=== PATIENT | female | born 1955 | race Caucasian/White ===

== ENCOUNTER 2024-02-15 08:30 | Outpatient (RCR) | payer MEDICARE, OTHER, SELFPAY ==
--- NOTE | 2024-01-23 11:28 | HP.OTEVAL ---
Patient's Visit Information Visit Information Visit Information: MACRIN STEPHEN is a 69 year old F, referred to Occupational Therapy by Dr. Javier Hitchcock DO, with a diagnosis of L hand pain R wrist pain. Date of Evaluation: 01/23/24 Occupational Therapist: Martha Bailey Subjective Subjective: This 69 year old female arrives to OT with refferal due to L hand and R wrist pain. Per pt Dr states L side is due to dequervein. Pt has hx of ORIF january 2000 then 2000 to remove plate and bone rebroke sx for additional plate. pt presents this date with pain R ulnar side of wrist per otho possibly from over use compensating for L hand with dequervein. pt went through x2 rounds of prednisone then did injection to both sides. pt states it took edge off however still feels the pain. Pt does have brace she has been wearing since end of november L side modified thumb spica and R side wrist cockup orthosis she states she wears them at night and during day during heavy labor tasks. pt is retired. Pt is R hand dominant. Pt enjoys hiking. pt reports most intense pain on R side is when she supinates. Pain LUE: Current Pain Intensity: 6 RUE: Current Pain Intensity: 6 Objective Objective/Observation: arrives with with brace L wrist modified thumb space and R wrist wrist cock up orthosis ROM Shoulder: wfl Elbow: wfl Forearm: L wfl R wfl Wrist: L wfl R wfl CMC: wfl MP: wfl IP: wfl Radial Abduction: wfl Palmar Abduction: wfl Opposition: wfl MP: wfl PIP: wfl DIP: wfl ROM Comments: R side tightness with supination L wrist flexion painful to approx 3 Strength Girls Tennis Coach: R 50# L 30# Lateral Pinch: R 8# L 5# Tripod Pinch: R 5# L 0# Edema Other: L 16 cm R 15.5 cm Sensation Sensation Comments: L on radial side up thumb as well as ulnar side R only ulnar side Quick DASH-Disab of Arm,Shoulder& Hand Quick DASH Score: 36.3625 Goals Goal:: pt will improve L supervisor soakers strength equal to non affected UE (50#) in order to maximize daily functional use of LUE pt will improve L lateral pinch strength equal to non affected UE (8#) in order to maximize daily functional use of LUE Goal:: pt will report decrease pain in L wrist/ hand 1/10 during movement or less in order to promote daily functional use pt will report decrease pain in R wrist to 1/10 or less during movement in order to promote daily functional use Goal:: pt will verbalize/ demonstrate proper joint protection/ positioning and activity modification nec for L and R UE in order to promote functional use of BUEs Goal:: pt will improve quick dash score by 10 points or more (36.36) in order to maximize functional use of BUEs Goal:: pt will demonstrate/ verbalize 100% accuracy in L and R bracing wear sched as well as fit and don/dof tech to promote carryover and decreased pain pt will verbalize/ demonstrate 100% accuracy in L and R HEP program for decreased pain improved strength Rehabilitation General Assessment: This 69 year old female arrives with L thumb spica and R wrist cock up orthosis on. pt has been wearing these for last 7-8 weeks with minimal results. Pt presents with pain in L radial region during wrist flex and ulnar deviation consistent with dequerveins and R wrist at ulnar region along ECU tendon location. Pt does have full ROM however erports pain with certain movements. pt does have decreased supervisor soakers and pinch strength on L side due to pain . pt would benefit from OT services 1-2x a week for 4-6 weeks in order to provide training in joint positioning and protection provide pain management and modalities, impliment proper stretch and strengthening program for pain relief and return to function Rehabilitation Potential: Good Anticipated Interventions Anticipated Interventions: A/AAROM/PROM, Strengthening, Triggerpoint Release, Modalities, Joint Protection/Energy Conservation, Education re assistive Equipment, Education re Diagnosis, Education re Self Massage Techniques and Home Program Visit Plan Frequency: 1-2x /Week Duration: 4-6 Weeks General Plan: AAROM/AROM/PROM bracing stretch isometric strengthening tendon glide proprioception trigger point release TEXT: Thank you for the opportunity to evaluate your patient. For Medicare and Medicare HMO plans, please review the plan of care and approve it. It will need to be FAXED BACK to us at [phone] for Medicare purposes. Please let me know if there are questions or concerns regarding this plan of care. Physician Signature: Date:
--- NOTE | 2024-02-15 09:20 | HP.OTDCSUM ---
Discharge Summary D/C Summary: It has been my pleasure to treat MARCIN STEPHEN under orders from Dr. Javier Hitchcock DO, for the diagnosis of L hand pain R wrist pain for a total of 7 visit(s). Please see the following information for a summary of their discharge status. Overall Improvement % Improvement: 40 Goals Patient Goals: Regain Strength, Decrease Pain, Decrease Swelling/Stiffness, Use Hand/Wrist/Arm Normally Again, Decrease Tingling/Numbness, Resume Former Household Responsibilities (Cooking,Cleaning,Yard, etc.) and Resume Hobbies Goal:: pt will improve L quality control tech raw materials strength equal to non affected UE (50#) in order to maximize daily functional use of LUE 02/15/24 L 25# R 42# NOT MET pt will improve L lateral pinch strength equal to non affected UE (8#) in order to maximize daily functional use of LUE L 5# R 8# NOT MET Goal:: pt will report decrease pain in L wrist/ hand 1/10 during movement or less in order to promote daily functional use 3-4/10 NOT MET pt will report decrease pain in R wrist to 1/10 or less during movement in order to promote daily functional use 3-4/10 NOT MET Goal:: pt will verbalize/ demonstrate proper joint protection/ positioning and activity modification nec for L and R UE in order to promote functional use of BUEs GOAL MET Goal:: pt will improve quick dash score by 10 points or more (36.36) in order to maximize functional use of BUEs now 40.90 NOT MET Goal:: pt will demonstrate/ verbalize 100% accuracy in L and R bracing wear sched as well as fit and don/dof tech to promote carryover and decreased pain GOAL MET pt will verbalize/ demonstrate 100% accuracy in L and R HEP program for decreased pain improved strength GOAL MET Plan Plan: discharge D/C Information d/c sentence: If there are questions or concerns regarding this patient's occupational therapy, please fell free to call me at [phone]. Thank you for the referral of this patient. Sincerely, Martha Bailey
--- NOTE | 2024-02-15 09:21 | HP.OT.NRP ---
Patient Information Patient Information: MARCIN STEPHEN was seen in my office for initial evaluation on 01/23/24. The following Plan of Care was established for this patient: POC Established Initial Frequency: 1-2x /Week Initial Duration: 4-6 Weeks Plan: discharge Anticipated Interventions Anticipated Interventions: A/AAROM/PROM, Strengthening, Triggerpoint Release, Modalities, Joint Protection/Energy Conservation, Education re assistive Equipment, Education re Diagnosis, Education re Self Massage Techniques and Home Program Last Seen Last Seen: This patient was last seen in our office 02/15/24. Pertinent comments regarding their Occupational therapy will appear below: This 69 year old female seen for OT services L hand dequervein and R hand tendinitis. Pt continues to demonstrate pain in B arms ranging from 3 to 4/10 plans to have follow up appointment with physician to address. Pt demosntrates understanding in bracing joint protection as well as stretching exercise and gentle isometric strengthening provided and will continue at home to tolerance in mean time. At this point I will be discontinuing this patient from occupational therapy. I would be happy to see this patient again in the future if found appropriate by the physician. Thank you! Martha Bailey
== END 2024-02-15 12:47 | disposition home or self-care (01) ==
LOC: OT 08:30
PROVIDERS: PCP Family Medicine; Referring Provider Family Medicine; Visit Provider Family Medicine
DX: M79.642 Pain in left hand (principal); M25.531 Pain in right wrist
CPT/HCPCS: 97035; 97140; 97166; 97530